=== PATIENT | female | born 1950 | race Caucasian/White ===

== ENCOUNTER 2016-11-30 09:32 | Day surgery (SDC) | payer MEDICARE, OTHER ==
[~2016-11-30 09:32] MED LIST: Lactated Ringers 1,000 ML IV SCH
[2016-11-30] MEDS ORDERED: Propofol 200 MG/20 ML SDV ONE (10:53)
[2016-11-30] MEDS ORDERED: fentaNYL 100 MCG/2 ML SDV ONE (10:53)
[2016-11-30 12:26] VITALS: BP 121/72
--- NOTE | 2016-12-01 08:12 | OR ---
PREOPERATIVE DIAGNOSIS: History of polyps. POSTOPERATIVE DIAGNOSIS: Polyp at 70 cm, removed. PROCEDURE PROPOSED: Total flexible colonoscopy. PROCEDURE DONE: Total flexible colonoscopy with polypectomy x1. INDICATION: This is a 66-year-old female, who has a personal history of polyps and comes in for a 5-year followup exam. TECHNIQUE: The patient was brought to the endoscopy suite and placed in left lateral decubitus position. She was sedated with propofol per [employer]. The flexible video colonoscope was then passed transanally and under visualization advanced to the cecum. Examination revealed a normal ascending and transverse colon. In the descending colon, at 70 cm, there was a polyp that was removed by hot snare technique and retrieved with suction. The remainder of the exam through the rectosigmoid was then normal. There are no signs of any colitis or any significant diverticular disease and the scope was then withdrawn. She tolerated the procedure well. FINAL IMPRESSION: Polyp at 70 cm, removed. PLAN: She will be sent a letter with pathology report. I felt that she should have a 5-year followup exam. SCM: 11/30/2016 11:50:16 MODL: 11/30/2016 21:57:12 /[id number]
--- NOTE | 2016-12-11 08:06 | LETTER ---
12/09/2016 Petty Salgado RE: PETTY SALGADO : 1950 Dear Petty, The polyp removed from your colon was a benign precancerous polyp known as an adenoma. With this polyp and your history of previous polyps, I feel that you should continue with colonoscopies every 5 years hereafter. Respectfully,
== END 2016-11-30 12:45 | disposition home or self-care (01) ==
LOC: VM.SDS 09:32
PROVIDERS: ATTEND Surgery
DX: Z12.11 Encounter for screening for malignant neoplasm of colon (principal); D12.6 Benign neoplasm of colon, unspecified; Z86.010 Personal history of colon polyps; E78.00 Pure hypercholesterolemia, unspecified; A60.00 Herpesviral infection of urogenital system, unspecified; M85.862 Other specified disorders of bone density and structure, left lower leg; M85.861 Other specified disorders of bone density and structure, right lower leg; K21.9 Gastro-esophageal reflux disease without esophagitis; N95.2 Postmenopausal atrophic vaginitis; J32.8 Other chronic sinusitis; G56.02 Carpal tunnel syndrome, left upper limb; M19.90 Unspecified osteoarthritis, unspecified site; Z86.001 Personal history of in-situ neoplasm of cervix uteri; Z79.51 Long term (current) use of inhaled steroids; Z79.899 Other long term (current) drug therapy; Z88.0 Allergy status to penicillin; Z88.1 Allergy status to other antibiotic agents; Z88.2 Allergy status to sulfonamides; Z88.8 Allergy status to other drugs, medicaments and biological substances; Z90.89 Acquired absence of other organs; Z98.890 Other specified postprocedural states
CPT/HCPCS: 45385; J2704; J3010; J7120; 88305

== ENCOUNTER 2022-04-16 07:30 | Day surgery (SDC) | payer MEDICARE, OTHER ==
[~2022-04-16 07:30] MED LIST changes: +Sodium Chloride 0.9% 10 ML Syringe FLUSH PRN
[2022-04-16] MEDS ORDERED: Propofol 200 MG/20 ML SDV ONE (09:52)
[2022-04-16] MEDS ORDERED: fentaNYL 100 MCG/2 ML SDV ONE (09:52)
[2022-04-16 11:39] VITALS: BP 117/81; PULSE 88
== END 2022-04-16 11:30 | disposition home or self-care (01) ==
LOC: VM.SDS 07:30
PROVIDERS: ATTEND Family Medicine
DX: K57.30 Diverticulosis of large intestine without perforation or abscess without bleeding (principal); M85.80 Other specified disorders of bone density and structure, unspecified site; K21.9 Gastro-esophageal reflux disease without esophagitis; E78.00 Pure hypercholesterolemia, unspecified; Z79.82 Long term (current) use of aspirin; Z86.010 Personal history of colon polyps; Z80.0 Family history of malignant neoplasm of digestive organs; Z88.0 Allergy status to penicillin; Z88.2 Allergy status to sulfonamides; Z88.8 Allergy status to other drugs, medicaments and biological substances; Z88.1 Allergy status to other antibiotic agents; Z98.890 Other specified postprocedural states; Z79.899 Other long term (current) drug therapy
CPT/HCPCS: 00811; J2704; J3010; J7120